=== PATIENT | male | born 1980 | race Caucasian/White ===

== ENCOUNTER 2017-03-11 14:39 | Emergency (ER) | payer MEDICARE ==
[~2017-03-11] VITALS: Ht 187.9 cm; Wt 81.6 kg
[2017-03-11] MEDS ORDERED: AMINOPHYLLIN200 MG PO (16:57)
== END 2017-03-11 19:04 | disposition home or self-care (01) ==
LOC: ED 14:39
DX: S80.862A Insect bite (nonvenomous), left lower leg, initial encounter (principal); S80.861A Insect bite (nonvenomous), right lower leg, initial encounter; H65.03 Acute serous otitis media, bilateral; F17.200 Nicotine dependence, unspecified, uncomplicated; W57.XXXA Bitten or stung by nonvenomous insect and other nonvenomous arthropods, initial encounter; Y93.89 Activity, other specified; Y92.89 Other specified places as the place of occurrence of the external cause; Y99.8 Other external cause status

== ENCOUNTER 2018-11-21 17:18 | Emergency (ER) | payer MEDICARE, OTHER ==
[~2018-11-21] VITALS: Ht 187.9 cm; Wt 90.7 kg
[~2018-11-21 17:18] MED LIST: AMINOPHYLLIN200 MG PO; CIPRO500 MG PO
== END 2018-11-21 18:10 | disposition home or self-care (01) ==
LOC: ED 17:18
DX: F45.8 Other somatoform disorders (principal); F17.210 Nicotine dependence, cigarettes, uncomplicated; F12.90 Cannabis use, unspecified, uncomplicated

== ENCOUNTER 2022-05-13 18:21 | Emergency (ER) | payer OTHER ==
[~2022-05-13] VITALS: Ht 185.4 cm; Wt 88.5 kg
[2022-05-13 20:26] LABS: BASO # 0.1 10*3/uL (0.0-0.1); BASO % 0.9 % (0.0-1.0); EOS # 0.3 10*3/uL (0.0-0.4); EOS % 2.4 % (1.0-4.0); HEMATOCRIT 46.3 % (42.0-52.0); LYMPH % 24.5 % (27.0-41.0); MEAN CELL VOLUME 94.7 fl (80.0-94.0); MEAN CORPUSCULAR HGB 30.7 pg (27.0-31.0); MEAN CORPUSCULAR HGB CONC 32.4 g/dl (33.0-37.0); MEAN PLATELET VOLUME 11.5 fl (9.6-12.3); MONO # 0.6 10*3/uL (0.1-1.0); NEUT # 8.1 10*3/uL (2.3-7.9); NEUT % 66.8 % (47.0-73.0); PLATELET COUNT AUTOMATED 358 10*3/uL (130-400); RED BLOOD COUNT 4.89 10*6/uL (4.50-5.90); RED CELL DISTRI WIDTH 12.3 % (0-14.5); WHITE BLOOD COUNT 12.1 10*3/uL (4.8-10.8)
[2022-05-13 20:47] LABS: ALKALINE PHOSPHATASE 62 U/L (46-116); BUN 9 mg/dl (9-23); CHLORIDE 101 mmol/L (98-107); CREATININE 0.86 mg/dL (0.70-1.30); POTASSIUM 4.3 mmol/L (3.4-5.1); SGPT/ALT 17 U/L (10-49); SODIUM 135 mmol/L (136-145); TOTAL PROTEIN 7.7 gm/dL (6.0-8.0)
[2022-05-13] MEDS ORDERED: TAMIFLU 75MG CA75 MG PO (21:35)
== END 2022-05-13 21:50 | disposition home or self-care (01) ==
LOC: ED 18:21
PROVIDERS: Nurse Practitioner Family
DX: A51.0 Primary genital syphilis (principal); J10.1 Influenza due to other identified influenza virus with other respiratory manifestations; Z98.890 Other specified postprocedural states; Z20.822 Contact with and (suspected) exposure to COVID-19